=== PATIENT | female | born 1975 | race Caucasian/White ===

== ENCOUNTER 2018-12-03 12:30 | Inpatient (IN) | payer OTHER ==
[2018-12-03] MEDS ORDERED: METHYLERGONOVINE 0.2 MG INJ IM (14:00)
[2018-12-03] MEDS ORDERED: MISOPROSTOL 200 MCG TAB PR (14:00)
[2018-12-03] MEDS ORDERED: CARBOPROST 250 MCG INJ IM (14:00)
[2018-12-03] MEDS ORDERED: LIDOCAINE 1% (MPF) 30 ML INJ INJ (14:00)
[2018-12-03] MEDS ORDERED: OXYTOCIN 30 UNITS/LR 500 ML IV ×3 (14:00)
[2018-12-03] MEDS ORDERED: BUTORPHANOL 2 MG INJ IV (14:00)
[2018-12-03 14:09] LABS: ADD MAN DIFF? NO
[2018-12-03 14:12] LABS: BASOPHILS % 0.3 % (0.0-2.0); EOSINOPHILS # 0.1 10^3/ul (0.0-0.5); EOSINOPHILS % 0.9 % (0.0-7.0); HEMATOCRIT 33.9 % (37.0-47.0); LYMPHOCYTES # 1.4 10^3/ul (0.8-2.9); LYMPHOCYTES % 19.7 % (15.0-51.0); MEAN CORPUSCULAR HEMOGLOBIN 29.8 pg (29.0-33.0); MEAN CORPUSCULAR HGB CONC 32.4 g/dl (32.0-37.0); MEAN CORPUSCULAR VOLUME 91.9 fl (82.0-101.0); MEAN PLATELET VOLUME 9.9 fl (7.4-10.4); MONOCYTE # 0.5 10^3/ul (0.3-0.9); MONOCYTES % 6.8 % (0.0-11.0); NEUTROPHILS % 71.9 % (39.0-77.0); PLATELET COUNT 265 10^3/UL (140-415); RED BLOOD COUNT 3.69 10^6/ul (4.20-5.40); RED CELL DISTRIBUTION WIDTH 13.4 % (11.5-14.5)
[2018-12-03 14:35] LABS: INR 0.94; PARTIAL THROMBOPLASTIN TIME 25.2 Sec (23.0-35.0); PROTIME 12.7 Sec (11.9-14.9)
[2018-12-03 15:18] LABS: RAPID PLASMA REAGIN NONREACTIVE (NR)
[2018-12-03] MEDS: LACTATED RINGER'S 1,000 ML IV ×2 (18:19→22:37)
[2018-12-03] MEDS: OXYTOCIN 30 UNITS/LR 500 ML IV (18:20)
[2018-12-03 19:11] LABS: HEPATITIS B SURFACE ANTIGEN NEGATIVE (NEGATIVE)
[2018-12-03 20:30] LABS: ADD MAN DIFF? NO
[2018-12-03 20:32] LABS: BASOPHILS % 0.1 % (0.0-2.0); EOSINOPHILS % 0.5 % (0.0-7.0); HEMATOCRIT 33.2 % (37.0-47.0); HEMOGLOBIN 10.8 g/dl (12.0-16.0); LYMPHOCYTES # 1.5 10^3/ul (0.8-2.9); LYMPHOCYTES % 18.2 % (15.0-51.0); MEAN CORPUSCULAR HEMOGLOBIN 29.9 pg (29.0-33.0); MEAN CORPUSCULAR HGB CONC 32.5 g/dl (32.0-37.0); MONOCYTE # 0.5 10^3/ul (0.3-0.9); MONOCYTES % 5.9 % (0.0-11.0); NEUTROPHIL # 6.1 10^3/ul (1.6-7.5); NEUTROPHILS % 74.8 % (39.0-77.0); PLATELET COUNT 253 10^3/UL (140-415); RED BLOOD COUNT 3.61 10^6/ul (4.20-5.40); RED CELL DISTRIBUTION WIDTH 13.3 % (11.5-14.5)
[2018-12-03 20:32] LABS: WHITE BLOOD COUNT 8.2 10^3/ul (4.8-10.8)
[2018-12-03 20:57] LABS: ALANINE AMINOTRANSFERASE 26 IU/L (13-69); ALBUMIN 3.2 g/dl (3.3-4.9); ALBUMIN/GLOBULIN RATIO 0.94; ALKALINE PHOSPHATASE 132 IU/L (42-121); ANION GAP 9 (5-13); ASPARTATE AMINO TRANSFERASE 31 IU/L (15-46); BILIRUBIN,INDIRECT 0.2 mg/dl (0-1.1); BILIRUBIN,TOTAL 0.2 mg/dl (0.2-1.3); BLOOD UREA NITROGEN 10 mg/dl (7-20); CALCIUM 9.5 mg/dl (8.4-10.2); CARBON DIOXIDE 20 mmol/L (21-31); CHLORIDE 105 mmol/L (97-110); CREATININE 0.51 mg/dl (0.44-1.00); Estimated GFR > 60 mL/min (>60); GLUCOSE 73 mg/dl (70-220); POTASSIUM 3.8 mmol/L (3.5-5.1); SODIUM 134 mmol/L (135-144); TOTAL PROTEIN 6.6 g/dl (6.1-8.1); URIC ACID 7.5 mg/dl (3.1-7.9)
[2018-12-03 21:17] LABS: ADD UMIC YES; UR ASCORBIC ACID NEGATIVE (NEGATIVE); UR BILIRUBIN (Dip) NEGATIVE (NEGATIVE); UR BLOOD (Dip) 2+ mg/dL (NEGATIVE); UR CLARITY SLIGHTLY CLOUDY (CLEAR); UR COLOR YELLOW (YELLOW); UR GLUCOSE (Dip) NEGATIVE (NEGATIVE); UR KETONES (Dip) 2+ mg/dL (NEGATIVE); UR LEUKOCYTE ESTERASE (Dip) NEGATIVE Leu/ul (NEGATIVE); UR MUCUS FEW /HPF (NONE SEEN); UR NITRITE (Dip) NEGATIVE (NEGATIVE); UR RBC 0 /HPF (0-5); UR SPECIFIC GRAVITY (Dip) 1.025 (1.003-1.030); UR SQUAMOUS EPITHELIAL CELL FEW /HPF (FEW); UR TOTAL PROTEIN (Dip) 1+ mg/dl (NEGATIVE); UR UROBILINOGEN (Dip) NEGATIVE (NEGATIVE); UR WBC 2 /HPF (0-5)
[2018-12-04] MEDS ORDERED: FENTAnyl 2MCG/ML-ROPIV 0.2% 100 ML (01:24)
[2018-12-04] MEDS: LACTATED RINGER'S 1,000 ML IV ×2 (01:52→02:42)
[2018-12-04] MEDS ORDERED: DIPHENHYDRAMINE 50 MG INJ IV (02:30)
[2018-12-04] MEDS ORDERED: NALOXONE (0.4 MG/ML) INJ IV (02:30)
[2018-12-04] MEDS: FENTAnyl 2MCG/ML-ROPIV 0.2% 100 ML BAG EPI (06:21)
[2018-12-04] MEDS: ONDANSETRON 4 MG INJ IV (10:16)
[2018-12-04] MEDS ORDERED: OXYTOCIN 30 UNITS/LR 500 ML IV ×2 (13:11→13:30)
[2018-12-04] MEDS ORDERED: MISOPROSTOL 200 MCG TAB PR (13:30)
[2018-12-04] MEDS ORDERED: CARBOPROST 250 MCG INJ IM (13:30)
[2018-12-04] MEDS ORDERED: METHYLERGONOVINE 0.2 MG INJ IM (13:30)
[2018-12-04] MEDS: LACTATED RINGER'S 1,000 ML IV* ×2 (16:00→21:04)
[2018-12-04] MEDS: HYDROCODONE/APAP (5/325) TAB PO (16:36)
[2018-12-04] MEDS: LANOLIN HPA 1 PKT TOP (16:36)
[2018-12-04] MEDS: OXYTOCIN 30 UNITS/LR 500 ML IV (16:38)
[2018-12-04] MEDS: IBUPROFEN 600 MG TAB PO ×2 (17:32→23:47)
[2018-12-05] MEDS: LACTATED RINGER'S 1,000 ML IV* ×2 (05:04→13:04)
[2018-12-05] MEDS: IBUPROFEN 600 MG TAB PO ×4 (06:17→23:56)
[2018-12-05 08:30] LABS: ADD MAN DIFF? NO
[2018-12-05 08:42] LABS: BASOPHILS % 0.2 % (0.0-2.0); EOSINOPHILS # 0.1 10^3/ul (0.0-0.5); EOSINOPHILS % 0.6 % (0.0-7.0); HEMATOCRIT 28.8 % (37.0-47.0); HEMOGLOBIN 9.4 g/dl (12.0-16.0); LYMPHOCYTES # 1.9 10^3/ul (0.8-2.9); LYMPHOCYTES % 14.5 % (15.0-51.0); MEAN CORPUSCULAR HEMOGLOBIN 30.5 pg (29.0-33.0); MEAN CORPUSCULAR HGB CONC 32.6 g/dl (32.0-37.0); MEAN CORPUSCULAR VOLUME 93.5 fl (82.0-101.0); MEAN PLATELET VOLUME 10.7 fl (7.4-10.4); MONOCYTE # 0.9 10^3/ul (0.3-0.9); MONOCYTES % 7.1 % (0.0-11.0); NEUTROPHIL # 10.3 10^3/ul (1.6-7.5); PLATELET COUNT 231 10^3/UL (140-415); RED BLOOD COUNT 3.08 10^6/ul (4.20-5.40); RED CELL DISTRIBUTION WIDTH 13.9 % (11.5-14.5)
[2018-12-05 08:42] LABS: WHITE BLOOD COUNT 13.3 10^3/ul (4.8-10.8)
[2018-12-06] MEDS: IBUPROFEN 600 MG TAB PO ×2 (06:10→13:25)
[2018-12-06] MEDS ORDERED: DIPHTH/TET/ACEL PERTUSS (ADULT) 0.5 ML VIAL IM* (09:00)
== END 2018-12-06 17:00 | disposition home or self-care (01) | DRG 807 ==
LOC: PP1 12-04 15:28 → L-D 12:30
PROVIDERS: Specialist
PROC: 4A1HXCZ Monitoring of Products of Conception, Cardiac Rate, External Approach (ICD-10-PCS; 2018-12-03)
PROC: 10E0XZZ Delivery of Products of Conception, External Approach (ICD-10-PCS; principal; 2018-12-04)
DX: O16.4 Unspecified maternal hypertension, complicating childbirth (principal); Z37.0 Single live birth; O99.284 Endocrine, nutritional and metabolic diseases complicating childbirth; E78.5 Hyperlipidemia, unspecified; O99.214 Obesity complicating childbirth; E66.01 Morbid (severe) obesity due to excess calories; O69.81X0 Labor and delivery complicated by cord around neck, without compression, not applicable or unspecified; Z3A.39 39 weeks gestation of pregnancy
CPT/HCPCS: 62319; 80053; 81001; 84560; 85025; 85610; 85730; 86592; 86850; 86900; 86901; 87340; 99464